=== PATIENT | male | born 1995 | race Caucasian/White ===

== ENCOUNTER 2017-05-14 02:00 | Emergency (ER) | payer SELFPAY ==
[~2017-05-14] VITALS: Ht 185.4 cm; Wt 90.1 kg
[2017-05-14 02:50] LABS: VENOUS BASE EXCESS -5.6 (-2.0-2.0); VENOUS PARTIAL PRESSURE CO2 40.1 mmHg (38.0-50.0); VENOUS PARTIAL PRESSURE O2 59.9 mmHg (30.0-50.0); VENOUS STANDARD HCO3 19.8 MEQ/L; VENOUS TOTAL CO2 21.3 MEQ/L (24.0-28.0)
[2017-05-14 02:58] LABS: ANION GAP 11 MEQ/L (8-16); BLOOD UREA NITROGEN 11 MG/DL (7-18); CALCIUM LEVEL 8.6 MG/DL (8.5-10.1); CARBON DIOXIDE LEVEL 24 MEQ/L (21-32); CHLORIDE LEVEL 106 MEQ/L (98-107); CREATININE FOR GFR 1.21 MG/DL (0.70-1.30); GLUCOSE, FASTING 147 MG/DL (70-105); POTASSIUM SERUM 3.3 MEQ/L (3.5-5.1); SODIUM LEVEL 141 MEQ/L (136-145)
[2017-05-14 04:07] LABS: METHADONE URINE NEGATIVE (NEGATIVE)
[2017-05-14 04:35] VITALS: BP 143/73
== END 2017-05-14 04:44 | disposition home or self-care (01) ==
LOC: M ED 03:04
DX: T40.601A Poisoning by unspecified narcotics, accidental (unintentional), initial encounter (principal); R09.2 Respiratory arrest; X58.XXXA Exposure to other specified factors, initial encounter; Y92.9 Unspecified place or not applicable; Y93.9 Activity, unspecified; Y99.8 Other external cause status
CPT/HCPCS: 36415; 36600; 80048; 80306; 82803; 83605; 99284; G0480